=== PATIENT | female | born 1950 | race Caucasian/White ===

== ENCOUNTER 2016-04-01 17:35 | Emergency (ER) | payer OTHER ==
[~2016-04-01] VITALS: Ht 160 cm; Wt 57.1 kg
[2016-04-01 17:52] VITALS: BP 107/50; PULSE 65; RESP 16; TEMP 97.9; O2SAT 98
[2016-04-01] MEDS ORDERED: SERT-132 PO (18:17)
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
[2016-04-01] MEDS ORDERED: ROSU40 PO (18:23)
[2016-04-01] MEDS ORDERED: TIZA4TAB PO (18:40)
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
[2016-04-01 19:15] VITALS: BP 102/49; PULSE 78; RESP 18; TEMP 97.8; O2SAT 96
[2016-04-01 21:27] VITALS: BP 119/71
== END 2016-04-01 21:31 | disposition home or self-care (01) ==
LOC: PHED 17:35
DX: S16.1XXA Strain of muscle, fascia and tendon at neck level, initial encounter (principal); S39.012A Strain of muscle, fascia and tendon of lower back, initial encounter; V49.69XA Unspecified car occupant injured in collision with other motor vehicles in traffic accident, initial encounter; Y93.89 Activity, other specified; Y92.410 Unspecified street and highway as the place of occurrence of the external cause
CPT/HCPCS: 70450; 72125; 72131